=== PATIENT | female | born 1965 | race Caucasian/White ===

== ENCOUNTER 2018-05-04 13:54 | Outpatient (RCR) | payer BC, SELFPAY ==
--- NOTE | 2018-05-04 14:00 | PTDS_ITS ---
Date: 05/04/18 Referring: Colton Gillis MD F: [phone] Diagnosis: Sacral iliac pain PT Dx: L lumbosacral dysfunction, L hip pain, soft tissue dysfunction, pelvic malalignment due to probable scoliotic curvature contributing to L hip impaired arthrokinematics Subjective: History of Present Illness: Susan presenting to PT stating overall since start of PT she is 75% improved. She continues to have intermittent pain, but only after she has been lifting on her grandchildren, or something, otherwise she is symptom free. She is compliant with use of heel lift. She has been doing her exercises religiously, even coming here to the clinic to do them 1-2x a week. S he has not been as good about her stretches, but whenever she does these stretches here at the clinic, it allows her pain alleviation. Pain never exceeds a 2/10, again only when lifting something heavy, otherwise she is painfree. Pain remains local to the L side when bothersome. Standardized Measures: MOLBPDQ which is 24%, with primary contributor to this disability rating related to heavy lifting. Objective: Posture: Depression L ilium, continues to present with scoliotic curvature. Observation: Appears comfortable, no discomfort or facial grimaces with transfer movements or functional movements within the room. She is now able to do a functional squat with good intrinsic stability and good movement pattern. Gait: WNL, toe and heel walk WNL. Palpation: Non-tender throughout the lumbosacral region. ROM: Lumbar movements are essentially WNL with segmental hypomobility through the lumbar spine, but without pain. Bilateral hips WNL and non-irritable. Joint Accessory Motion: Moderate segmental limitations with UPAs and CPA's through all lumbar segments. Still some mild pain provocation at L4-L5 on the L. Strength: Grossly 5/5 throughout bilateral LE's. Intrinsic strength is much improved now with proper TRA contraction with all hesham open/close chain activities without need for cueing to perform this properly. Able to carry this over to weight bearing activities as noted above with functional squat. Neuro: WNL LE screen. Balance: WNL Special Tests: (-) dural symptoms with SLR, slump, (-) lumbar over pressure. Treatment: Manual Therapy [id number]: Complete unilateral knee to chest, figure 4 , supine twist mobilization, unilateral and central PA's to the lumbar spine with focus on the L side where she is more irritable. Therapeutic Procedure [id number]: Review hand out for lumbar stretching via yoga hand out reviewing angry cat stretches, supine twist, figure 4, child pose, etc. . . She is strongly encouraged to continue with her intrinsic strengthening and general conditioning, particularly here in our clinic to keep her motivated, also encourage her participation now in either yoga or Pilates classes in local area. She is also informed of my assessment below. Treatment Time: 30 mins Assessment: Susan has greatly improved since beginning PT now with almost complete resolution of her L sided low back pain, but episodically presenting with higher level activity such as heavy lifting or long lever lifting. I think as she continues to move forward with her conditioning and strengthening, these activities will be less bothersome to her. I do remind her of appropriate lifting mechanics, which will likely reduce her symptoms in the future. She no longer has any impairments in regards to soft tissue dysfunction , mobility limitations or pain with functional transfers. I think at this point she is appropriate for discharge from PT services as she is able to continue with her independent core and gross conditioning program, which has proven to be successful over the last month as she has worked on this independently due to patient's own compliance. ALL BEEN MET except for #4 ( progressing towards with her independent [place]) STG: __8__ weeks. 1. Lying on her side without pain exceeding a 2/10 2. Ascending and descending stairs the majority of time without discomfort. 3. Reports 50% greater ease getting into and out of her vehicle. 4. MOLPBDQ 20% disability 5. LEFS is a 40% disability (Not assessed) LTG: PROGRESSING TOWARDS, but nearly MET as she utilizes her independent strengthening program. __X__ Return to premorbid level of function. __X__ Return to full, pain-free, functional mobility. __X__ Independent with self-maintenance program. Plan: Patient discharged from PT, patient no longer requires skilled PT intervention to carry out her strengthening program appropriately for her knee. She understands she can contact me at any time with questions or concerns. JH/dl
== END 2018-05-13 23:59 | disposition home or self-care (01) ==
LOC: PT 13:54
PROVIDERS: PCP Family Medicine; Referring Provider Family Medicine; Visit Provider Family Medicine
DX: M53.3 Sacrococcygeal disorders, not elsewhere classified (principal); M25.552 Pain in left hip; M79.89 Other specified soft tissue disorders
CPT/HCPCS: 97110; 97140

== ENCOUNTER 2025-06-13 20:55 | Outpatient (REF) | payer BC, SELFPAY | END 2025-06-13 20:56 | disposition home or self-care (01) | LOC: LBN 20:55 | PROVIDERS: PCP Family Medicine; Visit Provider Physician Assistant Medical | DX: J02.9 Acute pharyngitis, unspecified (principal) | CPT/HCPCS: 87070 ==